=== PATIENT | female | born 1965 | race Caucasian/White ===

== ENCOUNTER → 2017-07-29 | Outpatient (CLI) | payer BC ==
[2017-07-29 15:21] LABS: BUN/CREATININE RATIO 19.5 (6.0-26.0); CALCIUM 8.7 mg/dL (8.4-10.2); POTASSIUM 3.6 mmol/L (3.6-5.0)
[2017-07-29 19:32] LABS: C-REACTIVE PROTEIN XXX
[2017-08-01 23:55] LABS: ANA SCREEN with REFLEX Negative (Negative)
== END ==
LOC: LAB 14:58
PROVIDERS: Family Medicine
DX: R76.8 Other specified abnormal immunological findings in serum (principal); E07.9 Disorder of thyroid, unspecified; M79.1 Myalgia

== ENCOUNTER → 2017-08-18 | Outpatient (CLI) | payer BC | LOC: MAMMO 08:28 | DX: Z12.31 Encounter for screening mammogram for malignant neoplasm of breast (principal) ==

== ENCOUNTER → 2017-09-09 | Outpatient (CLI) | payer BC ==
[2017-09-09 13:03] LABS: EOS # 0.1 (0.04-0.40); EOS % 0.6 % (1.0-5.0); HEMATOCRIT 44.9 % (37.0-47.0); HEMOGLOBIN 15.1 g/dL (12.5-16.0); LYMPH# 3.3 (1.50-4.00); MEAN CELL VOLUME 93 fl (78-100); MEAN CORPUSCULAR HEMOGLOBIN 31 pg (27-31); MEAN CORPUSCULAR HGB CONC 34 g/dL (33-37); MEAN PLATELET VOLUME 11.7 fl (7.4-10.4); MONO # 0.5 (0.20-0.80); NEU # 5.1 (1.40-6.50); PLATELET COUNT 276 K/mm3 (130-400); RED BLOOD COUNT 4.85 M/mm3 (4.10-5.30); RED CELL DISTRIBUTION WIDTH 14.2 % (11.5-14.5)
[2017-09-09 13:22] LABS: ALBUMIN 4.6 g/dL (3.5-5.0); BUN/CREATININE RATIO 19.2 (6.0-26.0); CALCIUM 9.7 mg/dL (8.4-10.2); TOTAL BILIRUBIN 0.4 mg/dL (0.2-1.3)
== END ==
LOC: RAD 11:31
PROVIDERS: Family Medicine
DX: M25.551 Pain in right hip (principal); M19.90 Unspecified osteoarthritis, unspecified site; Z01.419 Encounter for gynecological examination (general) (routine) without abnormal findings; E07.9 Disorder of thyroid, unspecified; R73.9 Hyperglycemia, unspecified; G62.9 Polyneuropathy, unspecified; Z86.39 Personal history of other endocrine, nutritional and metabolic disease

== ENCOUNTER → 2017-10-26 | Outpatient (CLI) | payer BC | LOC: LAB 12:04 | PROVIDERS: Physician Assistant | DX: E07.9 Disorder of thyroid, unspecified (principal); F41.9 Anxiety disorder, unspecified; G47.30 Sleep apnea, unspecified; R03.0 Elevated blood-pressure reading, without diagnosis of hypertension; Z72.0 Tobacco use ==

== ENCOUNTER → 2018-04-11 | Outpatient (CLI) | payer BC ==
[2018-04-11 11:38] LABS: URINE APPEARANCE CLEAR; URINE BILIRUBIN NEGATIVE (NEGATIVE); URINE BLOOD NEGATIVE (NEGATIVE); URINE COLOR YELLOW; URINE GLUCOSE NEGATIVE (NEGATIVE); URINE KETONE NEGATIVE (NEGATIVE); URINE LEUKOCYTE ESTERASE NEGATIVE (NEGATIVE); URINE NITRATE NEGATIVE (NEGATIVE); URINE PROTEIN(semi-quant) 1+ mg/dL (NEGATIVE); URINE UROBILINOGEN NORMAL (NORMAL); URINE WBC 0-1 /hpf (0-3)
== END ==
LOC: LAB 11:01
PROVIDERS: Nurse Practitioner
DX: R30.0 Dysuria (principal)

== ENCOUNTER → 2018-06-09 | Outpatient (CLI) | payer BC ==
[2018-06-09 15:21] LABS: EOS # 0.1 (0.04-0.40); EOS % 0.9 % (1.0-5.0); HEMATOCRIT 42.7 % (37.0-47.0); HEMOGLOBIN 13.8 g/dL (12.5-16.0); LYMPH# 3.7 (1.50-4.00); MEAN CELL VOLUME 92 fl (78-100); MEAN CORPUSCULAR HEMOGLOBIN 30 pg (27-31); MEAN CORPUSCULAR HGB CONC 32 g/dL (33-37); MEAN PLATELET VOLUME 11.4 fl (7.4-10.4); MONO # 0.8 (0.20-0.80); NEU # 5.1 (1.40-6.50); PLATELET COUNT 317 K/mm3 (130-400); RED BLOOD COUNT 4.64 M/mm3 (4.10-5.30); RED CELL DISTRIBUTION WIDTH 14.1 % (11.5-14.5); WHITE BLOOD COUNT 9.7 K/mm3 (4.8-10.8)
== END ==
LOC: LAB 14:21
PROVIDERS: Family Medicine
DX: Z01.419 Encounter for gynecological examination (general) (routine) without abnormal findings (principal); N95.1 Menopausal and female climacteric states; E07.9 Disorder of thyroid, unspecified; F41.9 Anxiety disorder, unspecified; G47.30 Sleep apnea, unspecified; R03.0 Elevated blood-pressure reading, without diagnosis of hypertension; Z72.0 Tobacco use; Z86.39 Personal history of other endocrine, nutritional and metabolic disease

== ENCOUNTER → 2018-10-31 | Outpatient (CLI) | payer BC | LOC: LAB 11:04 | DX: E07.9 Disorder of thyroid, unspecified (principal) ==

== ENCOUNTER → 2018-11-07 | Outpatient (CLI) | payer BC | LOC: MAMMO 09:43 | DX: Z12.31 Encounter for screening mammogram for malignant neoplasm of breast (principal) ==

== ENCOUNTER → 2019-01-24 | Outpatient (CLI) | payer BC | LOC: LAB 09:19 | DX: E07.9 Disorder of thyroid, unspecified (principal) ==

== ENCOUNTER → 2019-04-11 | Outpatient (CLI) | payer BC | LOC: RAD 10:37 → MAMMO 10:37 | DX: Z13.820 Encounter for screening for osteoporosis (principal); M81.0 Age-related osteoporosis without current pathological fracture; M85.80 Other specified disorders of bone density and structure, unspecified site ==

== ENCOUNTER → 2019-07-13 | Outpatient (CLI) | payer BC ==
[2019-07-13 14:52] LABS: EOS # 0.1 (0.04-0.40); EOS % 1.7 % (1.0-5.0); HEMATOCRIT 43.8 % (37.0-47.0); HEMOGLOBIN 14.5 g/dL (12.5-16.0); LYMPH# 3.3 (1.50-4.00); MEAN CELL VOLUME 92 fl (78-100); MEAN CORPUSCULAR HEMOGLOBIN 30 pg (27-31); MEAN CORPUSCULAR HGB CONC 33 g/dL (33-37); MEAN PLATELET VOLUME 10.9 fl (7.4-10.4); MONO # 0.7 (0.20-0.80); PLATELET COUNT 294 K/mm3 (130-400); RED BLOOD COUNT 4.78 M/mm3 (4.10-5.30); RED CELL DISTRIBUTION WIDTH 14.4 % (11.5-14.5); WHITE BLOOD COUNT 8.1 K/mm3 (4.8-10.8)
[2019-07-13 15:05] LABS: POTASSIUM 4.1 mmol/L (3.5-5.1)
[2019-07-13 15:06] LABS: ALBUMIN 4.4 g/dL (3.5-5.0)
[2019-07-13 15:07] LABS: CALCIUM 9.4 mg/dL (8.3-10.5)
[2019-07-13 15:08] LABS: TOTAL PROTEIN 7.3 g/dL (6.4-8.3)
[2019-07-13 15:10] LABS: TOTAL BILIRUBIN 0.2 mg/dL (0.2-1.2)
[2019-07-14 05:27] LABS: PROGESTERONE <0.5 ng/mL (())
[2019-07-14 05:28] LABS: FOLLICLE STIMULATING HORMONE 78.1 mIU/mL (()); LUTENIZING HORMONE 22.7 mIU/mL (())
== END ==
LOC: LAB 14:33
PROVIDERS: Family Medicine
DX: Z00.00 Encounter for general adult medical examination without abnormal findings (principal); E55.9 Vitamin D deficiency, unspecified; E07.9 Disorder of thyroid, unspecified; N92.6 Irregular menstruation, unspecified

== ENCOUNTER → 2019-09-07 | Outpatient (CLI) | payer BC | LOC: LAB 11:54 | DX: J02.9 Acute pharyngitis, unspecified (principal); R19.7 Diarrhea, unspecified; Z20.828 Contact with and (suspected) exposure to other viral communicable diseases ==

== ENCOUNTER → 2019-11-27 | Outpatient (CLI) | payer BC | LOC: LAB 14:40 | DX: E07.9 Disorder of thyroid, unspecified (principal) ==

== ENCOUNTER → 2020-07-11 | Outpatient (CLI) | payer OTHER | LOC: CARDREHAB 08:15 | DX: R07.9 Chest pain, unspecified (principal) | CPT/HCPCS: A9500 ==

== ENCOUNTER → 2020-07-11 | Outpatient (CLI) | payer OTHER | LOC: MAMMO 11:00 | DX: Z12.31 Encounter for screening mammogram for malignant neoplasm of breast (principal) ==

== ENCOUNTER → 2021-09-10 | Outpatient (CLI) | payer OTHER | LOC: LAB 08:15 | DX: E07.9 Disorder of thyroid, unspecified (principal) ==

== ENCOUNTER → 2021-10-23 | Outpatient (CLI) | payer OTHER | LOC: MAMMO 08:22 | DX: Z12.31 Encounter for screening mammogram for malignant neoplasm of breast (principal); M81.0 Age-related osteoporosis without current pathological fracture ==

== ENCOUNTER → 2023-07-25 | Outpatient (CLI) | payer OTHER ==
[2023-07-25 09:58] LABS: BASO # 0.03 K/mm3 (0.02-0.10); EOS # 0.04 K/mm3 (0.04-0.40); EOS % 0.6 % (1.0-5.0); HEMATOCRIT 41.6 % (37.0-47.0); HEMOGLOBIN 13.4 g/dL (12.5-16.0); MEAN CELL VOLUME 94 fl (78-100); MEAN CORPUSCULAR HEMOGLOBIN 30 pg (27-31); MEAN CORPUSCULAR HGB CONC 32 g/dL (33-37); MEAN PLATELET VOLUME 10.4 fl (7.4-10.4); MONO # 0.58 K/mm3 (0.20-0.80); NEU # 3.51 K/mm3 (1.40-6.50); PLATELET COUNT 228 K/mm3 (130-400); RED BLOOD COUNT 4.44 M/mm3 (4.10-5.30); RED CELL DISTRIBUTION WIDTH 13.2 % (11.5-14.5); WHITE BLOOD COUNT 6.5 K/mm3 (4.8-10.8)
[2023-07-25 10:05] LABS: ALBUMIN 4.3 g/dL (3.5-5.0)
[2023-07-25 10:06] LABS: CALCIUM 9.6 mg/dL (8.3-10.5)
[2023-07-25 10:08] LABS: TOTAL PROTEIN 6.9 g/dL (6.4-8.3)
[2023-07-25 10:10] LABS: TOTAL BILIRUBIN 0.4 mg/dL (0.2-1.2)
== END ==
LOC: LAB 09:48
PROVIDERS: Family Medicine
DX: I10 Essential (primary) hypertension (principal); E78.5 Hyperlipidemia, unspecified; E55.9 Vitamin D deficiency, unspecified

== ENCOUNTER → 2023-12-02 | Outpatient (CLI) | payer OTHER | LOC: MAMMO 08:30 | DX: Z12.31 Encounter for screening mammogram for malignant neoplasm of breast (principal) ==

== ENCOUNTER → 2024-04-04 | Outpatient (CLI) | payer OTHER | LOC: RAD 14:27 → MAMMO 14:27 | DX: Z13.820 Encounter for screening for osteoporosis (principal); M81.0 Age-related osteoporosis without current pathological fracture ==